=== PATIENT | female | born 1985 | race Caucasian/White ===

== ENCOUNTER 2017-08-23 08:16 | Emergency (ER) | payer MEDICAID ==
[~2017-08-23] VITALS: Ht 162.6 cm; Wt 75.0 kg
[~2017-08-23 08:16] MED LIST: BACT800T5 PO; CEPH500C3 PO; CORTIS10A AD; IBUP800T23 PO
[2017-08-23 08:18] VITALS: BP 124/81; PULSE 85; RESP 12; TEMP 98.5; O2SAT 100
[2017-08-23] MEDS ORDERED: PENI500T PO (09:10)
[2017-08-23] MEDS ORDERED: IBUP-232 PO (09:10)
--- NOTE | 2017-08-23 09:11 | PD ---
HPI Chief Complaint: Oral / Dental Pain or Problem Time Seen by Provider: 09:02 Travel History International Travel<30 days: No Contact w/Intl Traveler<30days: No History of Present Illness HPI 31-year-old female who presents to emergency room complaints of frontal lower tooth pain, patient reports that pain began last night. Reports that she has not gone to see a dentist yet. Denies fever/chills. Reports "I feel a bump behind my tooth." No other c/o. Denies trismus, denies inability to eat. PFSH Past Medical History Asthma: Yes Diminished Hearing: No Respiratory: Yes Tetanus Vaccination: > 5 Years Influenza Vaccination: No ?: Not LMP: 07/03/17 : 2 Para: 1 Tubal Ligation: Yes Past Surgical History Section: Yes (x 1) Other Surgery: Yes (BREAST REDUCTION) Social History Alcohol Use: No Tobacco Use: Yes (10/02 PPD) Substance Use: No Allergies-Medications (Allergen,Severity, Reaction): Coded Allergies: No Known Allergies (Verified Adverse Reaction, Unknown, 08/23/17) Reported Meds & Prescriptions Reported Meds & Active Scripts Active No Active Prescriptions or Reported Medications Review of Systems General / Constitutional: No: Fever Eyes: No: Visual changes HENT: Positive: Other (tooth pain), No: Headaches Cardiovascular: No: Chest Pain or Discomfort Respiratory: No: Shortness of Breath Gastrointestinal: No: Abdominal Pain Genitourinary: No: Dysuria Musculoskeletal: No: Pain Skin: No Rash Neurologic: No: Weakness Psychiatric: No: Depression Endocrine: No: Polydipsia Hematologic/Lymphatic: No: Easy Bruising Physical Exam Narrative GENERAL: Well-nourished, well-developed patient. SKIN: Focused skin assessment warm/dry. HEAD: Normocephalic. EYES: No scleral icterus. No injection or drainage. MOUTH: patient with abscess behind front lower tooth, no drainage or erythema, no trismus NECK: Supple, trachea midline. No JVD or lymphadenopathy. CARDIOVASCULAR: Regular rate and rhythm without murmurs, gallops, or rubs. RESPIRATORY: Breath sounds equal bilaterally. No accessory muscle use. GASTROINTESTINAL: Abdomen soft, non-tender, nondistended. MUSCULOSKELETAL: No cyanosis, or edema. BACK: Nontender without obvious deformity. No CVA tenderness. Data Data Last Documented VS Vital Signs Date Time Temp Pulse Resp B/P (MAP) Pulse Ox O2 Delivery O2 Flow Rate FiO2 08/23/17 08:46 16 08/23/17 08:18 98.5 85 124/81 (95) 100 Orders Orders Penicillin V Potassium (Veetids) (08/23/17 09:15) Acetaminophen (Tylenol) (08/23/17 09:15) MDM Medical Decision Making Medical Screen Exam Complete: Yes Emergency Medical Condition: Yes Medical Record Reviewed: Yes Interpretation(s) Vital Signs Date Time Temp Pulse Resp B/P (MAP) Pulse Ox O2 Delivery O2 Flow Rate FiO2 08/23/17 08:46 16 08/23/17 08:18 98.5 85 12 124/81 (95) 100 Differential Diagnosis Dental abscess, infection Narrative Course 31-year-old female who presents to emergency room with complaints of frontal lower dental "bump" and pain. No fever/chills. Symptoms began yesterday. NO fever/chills. No other c/o. Plan to start patient on [id number] and have her follow up with dentist. Signs and symptoms of when to return to the ER was reviewed with patient in detail. Diagnosis Primary Impression: Dental infection Patient Instructions: General Instructions Additional Instructions: Please take all medications as prescribed Please follow up with dentist as soon as possible Return to ER as needed Med/Other Pt SpecificInfo: Prescription(s) given Scripts Ibuprofen (Ibuprofen) 600 Mg Tab 600 MG PO Q6H Y for Pain/Inflammation, #40 TAB 0 Refills Prov: Suzette Potter DO 08/23/17 Penicillin V Potassium (Penicillin V Potassium) 500 Mg Tab 500 MG PO Q6H for Infection for 10 Days, #40 TAB 0 Refills Prov: Suzette Potter DO 08/23/17 Disposition: 01 DISCHARGE HOME Condition: Stable Suzette Potter DO Aug 23, 2017 09:10
[2017-08-23] MEDS ORDERED: PENICILLIN V POTASSIUM 500 MG TAB PO ONE (09:15)
[2017-08-23] MEDS ORDERED: ACETAMINOPHEN 325 MG TAB PO ONE (09:15)
[2017-08-23 09:19] VITALS: BP 118/77; TEMP 97.9
== END 2017-08-23 09:19 | disposition home or self-care (01) ==
LOC: NEPD 08:16
DX: K04.7 Periapical abscess without sinus (principal); J45.909 Unspecified asthma, uncomplicated; F17.200 Nicotine dependence, unspecified, uncomplicated
CPT/HCPCS: 99283